=== PATIENT | male | born 1970 | race Caucasian/White ===

== ENCOUNTER 2018-04-02 09:58 | Inpatient (IN) | payer BC ==
[2018-04-01 15:00] LABS: BASOPHILS # (AUTO) 0.1 (0.0-0.1); BASOPHILS % 1.1 % (0.0-1.0); EOSINOPHILS # (AUTO) 0.2 (0.0-0.4); EOSINOPHILS % 2.7 % (0.0-6.0); HEMATOCRIT 38.2 % (38.2-49.6); HEMOGLOBIN 12.7 g/dL (14.0-18.0); LYMPHOCYTES # (AUTO) 2.2 (1.0-3.2); MEAN CORPUSCULAR HEMOGLOBIN 26.6 pg (28-32); MEAN CORPUSCULAR HGB CONC 33.2 g/dL (31-35); MEAN CORPUSCULAR VOLUME 80.1 fL (81-99); MONOCYTES # (AUTO) 0.6 (0.2-0.8); MONOCYTES % 7.7 % (4.4-11.3); NEUTROPHILS # (AUTO) 4.3 (2.1-6.9); NEUTROPHILS % 58.1 % (38.7-80.0); PLATELET COUNT 219 x10e3/uL (140-360); RED BLOOD COUNT 4.77 x10e6/uL (4.3-5.7); RED CELL DISTRIBUTION WIDTH 14.9 % (11.7-14.4)
[2018-04-01 15:17] LABS: BLOOD UREA NITROGEN 17 mg/dL (7-26); BUN/CREATININE RATIO 14 (6-25); CALCIUM 10.3 mg/dL (8.4-10.2); CARBON DIOXIDE 24 mmol/L (22-29); CHLORIDE 95 mmol/L (98-107); CREATININE, SERUM 1.22 mg/dL (0.72-1.25); EST GLOMERULAR FILTRATION RATE > 60 ML/MIN (60-); SODIUM 131 mmol/L (136-145)
[2018-04-01 15:21] LABS: GLUCOSE 474 mg/dL (74-118)
--- NOTE | 2018-04-01 15:30 | Diagnostic Imaging Report ---
PROCEDURE: Frontal and lateral views of the chest. COMPARISON: None. INDICATIONS: PREOPERATIVE CHEST XRAY FOR LEFT HEART CATH FINDINGS: Lines/tubes: None. Lungs: The lungs are well inflated and clear. There is no evidence of pneumonia or pulmonary edema. Pleura: There is no pleural effusion or pneumothorax. Heart and mediastinum: The heart and the mediastinum are normal. Bones: No acute bony abnormality. IMPRESSION: No acute cardiopulmonary disease. Dictated by: Art Molina M.D. on 04/01/2018 at 15:35 Electronically approved by: Art Molina M.D. on 04/01/2018 at 15:35
[~2018-04-02] VITALS: Ht 177.8 cm; Wt 129.3 kg
[2018-04-02] VITALS (10 sets, daily range): BP systolic 117–143; BP diastolic 68–86
[~2018-04-02 09:58] MED LIST: CRESTOR10 MG PEG; JANUMET 50-5001 EACH PEG; LEVOTHYROXINE50 MCG PO; LISINOPRIL10 MG PO; METOPROLOL SUCC25 MG PO; PANTOPRAZOLE SO40 MG PO
[2018-04-02] MEDS ORDERED: SODIUM CHLORIDE 0.9% 1000ML 1,000 ML ONE (10:49)
[2018-04-02] MEDS ORDERED: INSULIN REGULAR, HUMAN 100 UNIT/1 ML 3ML VIAL SQ ONE ×2 (11:30→12:30)
[2018-04-02] MEDS ORDERED: FENTANYL CITRATE/PF 100MCG/2 ML INJ ONE (12:41)
[2018-04-02] MEDS ORDERED: MIDAZOLAM HCL 2 MG/2 ML VIAL ONE ×2 (12:41→14:01)
[2018-04-02] MEDS ORDERED: IOPAMIDOL 370 MG/ML 200 ML INFUS..BTL INJ ONE ×2 (12:41→13:46)
[2018-04-02] MEDS ORDERED: LIDOCAINE HCL 2% LOCAL 20 ML VIAL ONE ×2 (12:41→13:38)
[2018-04-02] MEDS ORDERED: HEPARIN SOD/SOD CHLORIDE 2,000 ML ONE (12:41)
[2018-04-02] MEDS ORDERED: BIVALIRUDIN 250 MG/VIAL IV ONE (13:58)
[2018-04-02] MEDS ORDERED: SODIUM CHLORIDE 0.9% 50ML 50 ML ONE (13:58)
[2018-04-02] MEDS ORDERED: NITROGLYCERIN/D5W 200 MCG/ML 250 ML ONE (14:01)
[2018-04-02] MEDS ORDERED: CEFAZOLIN SOD 1 GM VIAL ONE (14:20)
[2018-04-02] MEDS ORDERED: CLOPIDOGREL BISULFATE 75 MG TAB ONE (14:27)
[2018-04-02] MEDS ORDERED: ASPIRIN 81 MG CHEW TAB ONE (14:28)
[2018-04-02] MEDS ORDERED: ATROPINE SULFATE 0.1 MG/ML 10ML SYR ONE (14:29)
[2018-04-02] MEDS ORDERED: SODIUM CHLORIDE 0.9% 1000ML 1,000 ML IV SCH (15:18)
[2018-04-02] MEDS ORDERED: NITROGLYCERIN 0.4 MG SUBL SL PRN (15:30)
[2018-04-02] MEDS ORDERED: HYDROCODONE/APAP 5MG-325MG TAB PO PRN (15:30)
[2018-04-02] MEDS ORDERED: ZOLPIDEM TARTRATE 5 MG TAB PO PRN (15:30)
[2018-04-02] MEDS ORDERED: ONDANSETRON HCL INJ 2 MG/ML VIAL IV PRN (15:30)
[2018-04-02] MEDS ORDERED: INSULIN REGULAR, HUMAN 100 UNIT/1 ML 3ML VIAL SQ PRN (15:45)
[2018-04-02] MEDS ORDERED: DEXTROSE 50% SYRINGE 50 ML IV PRN (15:45)
[2018-04-02] MEDS: METOPROLOL TARTRATE 25 MG TAB PO SCH (17:00)
[2018-04-02 17:09] LABS: BASOPHILS # (AUTO) 0.1 (0.0-0.1); BASOPHILS % 0.6 % (0.0-1.0); EOSINOPHILS # (AUTO) 0.1 (0.0-0.4); EOSINOPHILS % 1.5 % (0.0-6.0); HEMOGLOBIN 12.5 g/dL (14.0-18.0); LYMPHOCYTES # (AUTO) 1.4 (1.0-3.2); LYMPHOCYTES % 15.4 % (18.0-39.1); MEAN CORPUSCULAR HEMOGLOBIN 26.5 pg (28-32); MEAN CORPUSCULAR HGB CONC 32.9 g/dL (31-35); MEAN CORPUSCULAR VOLUME 80.5 fL (81-99); MONOCYTES # (AUTO) 0.5 (0.2-0.8); MONOCYTES % 5.2 % (4.4-11.3); NEUTROPHILS # (AUTO) 6.9 (2.1-6.9); NEUTROPHILS % 77.1 % (38.7-80.0); PLATELET COUNT 203 x10e3/uL (140-360); RED BLOOD COUNT 4.72 x10e6/uL (4.3-5.7); RED CELL DISTRIBUTION WIDTH 14.7 % (11.7-14.4)
[2018-04-02] MEDS: INSULIN REGULAR, HUMAN 100 UNIT/1 ML 3ML VIAL SQ SCH (17:15)
[2018-04-02 17:26] LABS: ANION GAP 15.9 mmol/L (8-16); BLOOD UREA NITROGEN 17 mg/dL (7-26); BUN/CREATININE RATIO 18 (6-25); CALCIUM 9.4 mg/dL (8.4-10.2); CARBON DIOXIDE 24 mmol/L (22-29); CHLORIDE 97 mmol/L (98-107); CREATININE, SERUM 0.94 mg/dL (0.72-1.25); EST GLOMERULAR FILTRATION RATE > 60 ML/MIN (60-); GLUCOSE 241 mg/dL (74-118); POTASSIUM 3.9 mmol/L (3.5-5.1); SODIUM 133 mmol/L (136-145)
[2018-04-02] MEDS ORDERED: ATORVASTATIN 20 MG TAB PO SCH (21:00)
[2018-04-02] MEDS ORDERED: ATORVASTATIN 20 MG TAB PO ONE (23:00)
[2018-04-03] MEDS: INSULIN REGULAR, HUMAN 100 UNIT/1 ML 3ML VIAL SQ SCH ×2 (00:30→05:42)
[2018-04-03 04:45] LABS: BASOPHILS # (AUTO) 0.1 (0.0-0.1); BASOPHILS % 0.7 % (0.0-1.0); EOSINOPHILS # (AUTO) 0.2 (0.0-0.4); EOSINOPHILS % 1.7 % (0.0-6.0); HEMATOCRIT 37.7 % (38.2-49.6); HEMOGLOBIN 12.4 g/dL (14.0-18.0); LYMPHOCYTES # (AUTO) 2.8 (1.0-3.2); LYMPHOCYTES % 28.6 % (18.0-39.1); MEAN CORPUSCULAR HEMOGLOBIN 26.4 pg (28-32); MEAN CORPUSCULAR HGB CONC 32.9 g/dL (31-35); MEAN CORPUSCULAR VOLUME 80.4 fL (81-99); MONOCYTES # (AUTO) 0.7 (0.2-0.8); MONOCYTES % 7.1 % (4.4-11.3); NEUTROPHILS # (AUTO) 5.9 (2.1-6.9); NEUTROPHILS % 61.7 % (38.7-80.0); PLATELET COUNT 218 x10e3/uL (140-360); RED BLOOD COUNT 4.69 x10e6/uL (4.3-5.7); RED CELL DISTRIBUTION WIDTH 15.1 % (11.7-14.4)
[2018-04-03 04:58] LABS: ANION GAP 15.4 mmol/L (8-16); BLOOD UREA NITROGEN 14 mg/dL (7-26); BUN/CREATININE RATIO 14 (6-25); CALCIUM 9.6 mg/dL (8.4-10.2); CARBON DIOXIDE 27 mmol/L (22-29); CHLORIDE 99 mmol/L (98-107); CREATININE, SERUM 1.02 mg/dL (0.72-1.25); EST GLOMERULAR FILTRATION RATE > 60 ML/MIN (60-); GLUCOSE 153 mg/dL (74-118); POTASSIUM 4.4 mmol/L (3.5-5.1); SODIUM 137 mmol/L (136-145)
[2018-04-03 05:00] VITALS: BP 136/87
[2018-04-03] MEDS ORDERED: LEVOTHYROXINE SODIUM 50 MCG TAB PO SCH (06:30)
[2018-04-03] MEDS ORDERED: PANTOPRAZOLE SOD 40 MG TABEC PO SCH ×3 (07:30→09:00)
[2018-04-03 08:00] VITALS: BP 146/71
[2018-04-03] MEDS: METOPROLOL TARTRATE 25 MG TAB PO SCH (08:50)
[2018-04-03] MEDS ORDERED: ASPIRIN 325 MG TAB PO SCH (09:00)
[2018-04-03] MEDS ORDERED: CLOPIDOGREL BISULFATE 75 MG TAB PO SCH (09:00)
[2018-04-03 09:07] VITALS: BP 146/71
[2018-04-03] MEDS ORDERED: AMLODIPINE BESYL5 MG PO (12:07)
[2018-04-03] MEDS ORDERED: NITROGLYCERIN0.4 MG SL (12:08)
[2018-04-03] MEDS ORDERED: CLOPIDOGREL75 MG PO (12:08)
--- NOTE | 2018-04-03 14:53 | Operative Report ---
DATE OF PROCEDURE: April 02, 2018 DIAGNOSES 1. Coronary artery disease with unstable angina pectoris. 2. Hypertensive cardiovascular disease. 3. Diabetes mellitus. 4. Hyperlipidemia. PROCEDURES 1. Cardiac catheterization including selective coronary angiography and left ventricular angiogram. 2. Angioplasty and stenting of the right coronary artery. 3. Closure of left femoral artery with Angio-Seal VIP. ANESTHESIA: Moderate sedation and local anesthetic to the left groin area. DESCRIPTION OF PROCEDURE: After the usual prepping and draping, the left inguinal area was infiltrated with local lidocaine. The left femoral artery was then punctured percutaneously. In a modified Seldinger technique, a 6-Palestinian arterial sheath was placed in the left femoral artery. Selective coronary angiography was performed by using modified Rosanna catheters. A 6-Palestinian angled pigtail catheter was utilized for recording of hemodynamics and left ventricular angiography in the 30-degree HORVATH projection. FINDINGS OF DIAGNOSTIC CARDIAC CATHETERIZATION: The left ventricular pressure was 136 mmHg. The aortic pressure was 132/78 with a mean of 98 mmHg. There was no gradient across the aortic valve. The left ventricular end-diastolic pressure was elevated at 16 mmHg. The left coronary artery showed some scattered calcifications in the proximal branches. The left main coronary artery showed some minor irregularities amounting to approximately 10% stenosis. The left anterior descending branch showed diffuse scattered proximal irregularities consistent with 20% to 30% stenotic areas. The ostial portion of the 1st diagonal branch showed about a 40% stenosis. There was an intermediate branch, which also showed proximal irregularities amounting to about 10% to 20% stenosis. The left circumflex artery and obtuse marginal branch did not show any stenotic areas. The right coronary artery showed diffuse arteriosclerotic plaques with a segmental 70% stenotic area in the mid portion. The right coronary artery was large and dominant. The left ventricular angiogram showed normal wall motion and there was a normal ejection fraction of 65%. There was no evidence of mitral regurgitation. After review of the patient's diagnostic study, intervention was performed on the right coronary artery. The patient was started on Angio-Max bolus and drip, and a 6-Palestinian 3DRC guiding catheter was utilized for cannulization of the ostium of the right coronary artery. A 0.014 Whisper guidewire was advanced across the lesion into the distal right coronary artery. Angioplasty and stenting were performed by using a 3.5-mm x 24-mm coronary stent, model Synergy by [employer]. The stent was inflated up to 15 atmospheres for 44 seconds and was deployed successfully without any residual stenosis. The procedure was then terminated by removing the stent carrier, guidewire, guiding catheter and performing angiogram of the left inguinal area in the left anterior oblique position. The left femoral artery was then closed by using the Angio-Seal VIP closure device. After closing the left femoral artery and achieving a good hemostasis, the patient developed vasovagal reaction. The patient received 1 mg of atropine intravenously and a bolus of normal saline. However, he remained hypotensive and was then started on a dopamine drip at 3 mcg/kg/min. This achieved a normal blood pressure, and the patient became asymptomatic. He was then transferred to the observation area in stable condition. There were no complications, and the procedure was otherwise well tolerated. He received 600 mg of Plavix and 160 mg of aspirin orally after the Angio-Max drip was discontinued. Throughout the procedure, the patient had no chest pain, and there were no EKG changes. The patient's blood sugar at the end of procedure was less than 200. The patient was advised to follow a weight-reduction, low-carbohydrate and low-cholesterol diet. He will be continued on a statin to control his hyperlipidemia. The patient was advised prior to admission to increase his lisinopril to twice daily. However, it was noted that there was elevation of the potassium and lowering of the patient's sodium. He will then be advised to resume the lisinopril only once daily, and will require a prescription for amlodipine 5 mg twice daily. Since the patient was also recently started on metoprolol and had some unexplained episodes of sweating, which probably be could be related to the metoprolol, he was advised to discontinue this medication. Otherwise, the patient will resume his home medication. He stopped smoking 1 month ago and was certainly encouraged not to resume his nicotine habit. The patient will be closely watched overnight and hopefully will be discharged on the 03 of April to be followed as an outpatient. Job#: [id number] DEONDRE
[2018-04-03] MEDS ORDERED: ATORVASTATIN 20 MG TAB PO SCH (21:00)
== END 2018-04-03 12:37 | disposition home or self-care (01) | DRG 247 ==
LOC: CATH LAB 09:58 → IMCU 18:06
PROVIDERS: ADMIT Internal Medicine Cardiovascular Disease; ATTEND Internal Medicine Cardiovascular Disease
PROC: 027034Z Dilation of Coronary Artery, One Artery with Drug-eluting Intraluminal Device, Percutaneous Approach (ICD-10-PCS; principal; 2018-04-02)
PROC: 4A023N7 Measurement of Cardiac Sampling and Pressure, Left Heart, Percutaneous Approach (ICD-10-PCS; 2018-04-02)
PROC: B2151ZZ Fluoroscopy of Left Heart using Low Osmolar Contrast (ICD-10-PCS; 2018-04-02)
PROC: B2111ZZ Fluoroscopy of Multiple Coronary Arteries using Low Osmolar Contrast (ICD-10-PCS; 2018-04-02)
DX: I25.110 Atherosclerotic heart disease of native coronary artery with unstable angina pectoris (principal); I97.88 Other intraoperative complications of the circulatory system, not elsewhere classified; E78.5 Hyperlipidemia, unspecified; E11.9 Type 2 diabetes mellitus without complications; E03.9 Hypothyroidism, unspecified; Z79.4 Long term (current) use of insulin
CPT/HCPCS: 36415; 71046; 80048; 82947; 82948; 85025; 92928; 93005; 93458; C1874; J0583; J0690; J2001; J2250; J7030; Q9967

== ENCOUNTER → 2018-12-29 | Outpatient (CLI) | payer BC ==
[~2018-12-29] MED LIST changes: +AMLODIPINE BESYL5 MG PO; +CLOPIDOGREL75 MG PO; +NITROGLYCERIN0.4 MG SL
--- NOTE | 2018-12-29 13:41 | Diagnostic Imaging Report ---
FLUOROSCOPIC SMALL BOWEL SERIES STORE TEAM MEMBER(S): Ludy Greenberg MD Indication: Anemia. Comparison: None. Radiation Dose: Total dose: 131.39 mGy Total fluoroscopy time: 0.4 minutes Procedure: Small bowel follow through exam was performed using oral barium. Preliminary image was obtained before administration of contrast and serial overhead images were obtained after administration of oral barium. Fluoroscopy was performed and spot images were obtained. DISCUSSION: SAFETY RELIEF VALVE TECHNICIAN: The bowel gas pattern is non-obstructive. No acute bony abnormality. Surgical clips in the right lower quadrant. STOMACH: Unremarkable mucosal pattern. SMALL BOWEL: Bulb and sweep are normal. Duodenal-jejunal junction is in the normal expected position. Small bowel loops are normal in caliber and distribution. There is no evidence of fistula, mucosal changes, stricture or dilation. The transit time was within normal limits. Spot image of the terminal ileum was unremarkable. COLON: Filling defects within the proximal colon likely reflect stool contents. The proximal colon is not well evaluated due to lack of significant contrast opacification. IMPRESSION: Unremarkable fluoroscopic small bowel series. Signed by: Dr. Ludy Greenberg MD on 12/29/2018 1:38 PM
== END ==
LOC: DX 06:53
PROVIDERS: ATTEND Internal Medicine Gastroenterology
DX: D64.9 Anemia, unspecified (principal)
CPT/HCPCS: 74250

== ENCOUNTER → 2019-01-22 | Day surgery (SDC) | payer BC ==
[2019-01-21 11:40] LABS: BASOPHILS # (AUTO) 0.1 (0.0-0.1); BASOPHILS % 1.2 % (0.0-1.0); EOSINOPHILS # (AUTO) 0.2 (0.0-0.4); EOSINOPHILS % 2.6 % (0.0-6.0); HEMATOCRIT 36.4 % (38.2-49.6); HEMOGLOBIN 10.3 g/dL (14.0-18.0); LYMPHOCYTES # (AUTO) 1.8 (1.0-3.2); MEAN CORPUSCULAR HEMOGLOBIN 19.2 pg (28-32); MEAN CORPUSCULAR HGB CONC 28.3 g/dL (31-35); MEAN CORPUSCULAR VOLUME 67.9 fL (81-99); MONOCYTES # (AUTO) 0.7 (0.2-0.8); MONOCYTES % 10.5 % (4.4-11.3); NEUTROPHILS # (AUTO) 3.7 (2.1-6.9); NEUTROPHILS % 57.4 % (38.7-80.0); PLATELET COUNT 325 x10e3/uL (140-360); RED BLOOD COUNT 5.36 x10e6/uL (4.3-5.7); RED CELL DISTRIBUTION WIDTH 18.8 % (11.7-14.4)
[~2019-01-22] MED LIST changes: -CRESTOR10 MG PEG; +CRESTOR10 MG PO; +HYDROCHLOROTHIA25 MG PO; -JANUMET 50-5001 EACH PEG; +JANUMET 50-5001 EACH PO; +KETAMINE HCL INJ 50 MG/ML 10 ML VIAL ONE; +LIDOCAINE HCL 2% LOCAL INJ 5 ML SDV VIAL INJ ONE; +MIDAZOLAM HCL 2 MG/2 ML VIAL ONE; +PROPOFOL IV EMULSION 10 MG/ML 50 ML VIAL ONE
--- OUTSIDE RECORDS SUMMARY | 2019-01-22 10:15 | XMS REPORT | Continuity of Care Document ---
Author [facility] Address Unknown Phone Unavailable Problems Problem Status Onset Date Classification Date Reported Comments Source Body mass index 40+ - severely obese 03/03/2018 Diagnosis 03/03/2018 [facility] Viral upper respiratory tract infection 03/03/2018 Diagnosis 03/03/2018 [facility] Cigarette smoker 03/03/2018 Diagnosis 03/03/2018 [facility] Type 2 diabetes mellitus without complication 03/03/2018 Diagnosis 03/03/2018 [facility] Essential hypertension 03/03/2018 Diagnosis 03/03/2018 [facility] Hypothyroidism 03/03/2018 Problem 03/03/2018 [facility] Type 2 Diabetes Mellitus without Complication 03/03/2018 Problem 03/03/2018 [facility] Hyperlipidemia 03/03/2018 Problem 03/03/2018 [facility] Essential Hypertension 03/03/2018 Problem 03/03/2018 [facility] Viral Upper Respiratory Tract Infection 03/03/2018 Problem 03/03/2018 [facility] Cigarette Smoker 03/03/2018 Problem 03/03/2018 [facility] Body Mass Index 40+ - Severely Obese 03/03/2018 Problem 03/03/2018 [facility] Medications Medication Details Route Status Patient Instructions Ordering Provider Order Date Source Accu-Chek Fastclix Lancet Drum Accu-Chek Fastclix Lancet Drum UTD BID Active [facility] Accu-Chek Guide strips Accu-Chek Guide strips UTD BID Active [facility] benzonatate 200 MG Oral Capsule benzonatate 200 mg capsule Take 1 capsule 3 times a day by oral route as needed. Active [facility] buspirone hydrochloride 10 MG Oral Tablet buspirone 10 mg tablet TK 1 T PO BID Active [facility] Chantix Chantix Active [facility] Fluticasone propionate 0.05 MG/ACTUAT Metered Dose Nasal [place] Harris fluticasone 50 mcg/actuation nasal spray,suspension [place] 2 sprays every day by intranasal route as needed. Active [facility] 24 HR Metformin hydrochloride 1000 MG / sitagliptin 50 MG Extended Release Oral Tablet [Janumet] Janumet XR 50 mg-1,000 mg tablet,extended release TK 1 T PO BID. PATIENT NEEDS TO BE SEEN FOR FURTHER REFILLS Active [facility] Levothyroxine Sodium 0.05 MG Oral Tablet levothyroxine 50 mcg tablet TK 1 T PO QD Active [facility] Lisinopril 20 MG Oral Tablet lisinopril 20 mg tablet TK 1 T PO D Active [facility] 24 HR metoprolol succinate 50 MG Extended Release Oral Tablet metoprolol succinate ER 50 mg tablet,extended release 24 hr TK 1 T PO QD Active [facility] pantoprazole 40 MG Delayed Release Oral Tablet pantoprazole 40 mg tablet,delayed release TK 1 T PO D Active [facility] Prednisone 20 MG Oral Tablet prednisone 20 mg tablet Take 1 tablet every day by oral route as directed for 4 days. Active [facility] Rosuvastatin calcium 20 MG Oral Tablet rosuvastatin 20 mg tablet TK 1 T PO QD Active [facility] Allergies, Adverse Reactions, Alerts Substance Category Reaction Severity Reaction type Status Date Reported Comments Source Immunizations Immunization Date Given Site Status Last Updated Comments Source Results Order Name Results Value Reference Range Date Interpretation Comments Source Vital Signs Vital Sign Value Date Comments Source Diastolic (mm Hg) 100 03/03/2018 [facility] Height 70 03/03/2018 [facility] Systolic (mm Hg) 130 03/03/2018 [facility] Weight 290 03/03/2018 [facility] Encounters Location Location Details Encounter Type Encounter Number Reason For Visit Attending Provider ADM Date DC Date Status Source [place] - [facility] - [id number] Espinosa, MANAGER DOMESTIC[facility] [address] [facility] [place] [address], Ph. [id number] Suzi Espinosa 03/03/2018 [facility] Procedures Procedure Code Date Perfomer Comments Source Appendectomy [facility]
--- OUTSIDE RECORDS SUMMARY | 2019-01-22 10:15 | XMS REPORT | Encounter Summary ---
Author Organization Unknown Address [address] [place] [id number] Phone [phone] Care Team Providers Care Scientific Systems Analyst Name Role Phone Mey Falcon MD 3 [phone] Reason for Visit Medical Complaint Instructions 1. Viral upper respiratory tract infection benzonatate 200 mg capsule fluticasone 50 mcg/actuation nasal spray,suspension prednisone 20 mg tablet 2. Essential hypertension high blood pressure: care instructions 3. Type 2 diabetes mellitus without complication type 2 diabetes: care instructions 4. Hyperlipidemia high cholesterol: care instructions 5. Cigarette smoker 6. Body mass index 40+ - severely obese body mass index: care instructions Discussion Note Pt is in NAD; Verbalizes understanding of all instructions with no questions at this time. Plan of Care Patient Instructions Take tylenol over the counter for pain/headache/fever as per pacakge insert. Take benzonatate for cough as directed. Take fluticasone as needed for congestion. Evans one spray in each nostril twice a day. Take a warm, steamy shower, blow your nose thereafter, and spray in each nostril. Tilt your head up for about 10 seconds and breath through your mouth. Do not sniff or snort the medication in or else the medication will go to your throat and not be absorbed appropriately. Take levocetirizine for allergy like symptoms like runny nose, sneezing and watery eyes. Take medications as prescribed and follow up with a PCP within 2-3 if symptoms worsen as discussed. Recommend monitor BP at home and document, bring BP log to PCP for review. Recommend follow a low sodium diet and exercise 30-45 mins/d 3-4 days a week. Reminders Provider Appointments None recorded. Lab None recorded. Referral None recorded. Procedures None recorded. Surgeries None recorded. Imaging None recorded. Medications Name Start Date Accu-Chek Fastclix Lancet Drum UTD BID Accu-Chek Guide strips UTD BID benzonatate 200 mg capsule Take 1 capsule 3 times a day by oral route as needed. buspirone 10 mg tablet TK 1 T PO BID Chantix fluticasone 50 mcg/actuation nasal spray,suspension Evans 2 sprays every day by intranasal route as needed. Janumet XR 50 mg-1,000 mg tablet,extended release TK 1 T PO BID. PATIENT NEEDS TO BE SEEN FOR FURTHER REFILLS levothyroxine 50 mcg tablet TK 1 T PO QD lisinopril 20 mg tablet TK 1 T PO D metoprolol succinate ER 50 mg tablet,extended release 24 hr TK 1 T PO QD pantoprazole 40 mg tablet,delayed release TK 1 T PO D prednisone 20 mg tablet Take 1 tablet every day by oral route as directed for 4 days. rosuvastatin 20 mg tablet TK 1 T PO QD Medications Administered None recorded. Vitals Height Weight BMI Blood Pressure 5 ft 10 in 290 lbs 41.6 kg/m2 (1) 130/100 mm[Hg] (2) 130/100 mm[Hg] Lab Results None recorded. Allergies Code Code System Name Reaction Severity Status Onset NKDA Problems Name Status Onset Date Source Hypothyroidism Active 03/03/2018 Type 2 Diabetes Mellitus without Complication Active 03/03/2018 Hyperlipidemia Active 03/03/2018 Essential Hypertension Active 03/03/2018 Viral Upper Respiratory Tract Infection Active 03/03/2018 Cigarette Smoker Active 03/03/2018 Body Mass Index 40+ - Severely Obese Active 03/03/2018 Procedures Date Name Performed by Appendectomy Information not available Vaccine List None recorded. Social History Smoking Status Current Some Day Smoker Past Encounters 03/03/2018 Viral Upper Respiratory Tract Infection; Essential Hypertension; Type 2 Diabetes Mellitus without Complication; Hyperlipidemia; Cigarette Smoker; Body Mass Index 40+ - Severely Obese Suzi Espinosa, [facility]: [address] [place] [address], Ph. History of Present Illness Uaxfcer-Zfipv-Wel Reported By: Patient HPI: Quality: symptoms worse during the day. Duration: 7 days. Context: no ill contacts, no tick/insect bites, no recent travel, no new medications. Associated Symptoms: no fever/chills, no headache, no muscle aches, no rash, no lethargy, cold symptoms, cough, nasal passage blockage (stuffiness), nasal discharge; sinus pressure and post nasal drip. Modifying Factors nothing gives relief Review of Systems Basic Reported By: Patient Constitutional: Constitutional: no fever Eyes: Eyes: no eye complaints Zqtm-Itba-Eafap-Throat: Ears: no ear complaints. Nose: nose/sinus problems. Mouth/Throat: no sore throat, no bleeding gums, no mouth complaints, no teeth problems Cardiovascular: Cardiovascular: no chest pain, no shortness of breath, no known heart murmur Respiratory: Respiratory: no wheezing, no shortness of breath, cough Gastrointestinal: Gastrointestinal: no abdominal pain, no vomiting / diarrhea Genitourinary: Genitourinary: no urinary complaints, no discharge Musculoskeletal: Musculoskeletal: no muscle aches, no muscle weakness, no arthralgias/joint pain, no back pain Skin: Skin: no abnormal / changing mole, no jaundice, no rashes Neurologic: Neurologic: no loss of consciousness, no weakness, no numbness, no seizures, no dizziness, no headaches Physical Exam Adult Basic, Adult Male Complete Reported By: Patient Constitutional: General Appearance: obese. Level of Distress: NAD. Ambulation: ambulating normally Psychiatric: Mental Status: active and alert. Orientation: to time, to place, to person Pms-Zwyg-Lamdm-Throat: Ears: no lesions on external ear, no outer ear tenderness, EACs clear, TMs clear. Hearing: no hearing loss. Nose: no lesions on external nose, nares patent, no septal deviation, nasal passages clear, no sinus tenderness, nasal discharge--rhinorrhea, post nasal drip; B/L NTs edematous and pink. Lips, Teeth, and Gums: no mouth or lip ulcers, no bleeding gums, normal dentition. Oropharynx: moist mucous membranes, no erythema, no exudates, tonsils not enlarged Neck: Lymph Nodes: no cervical LAD Lungs: Respiratory effort: no dyspnea, no tachypnea, no use of accessory muscles, no intercostal retractions. Auscultation: breath sounds normal Cardiovascular: Heart Auscultation: RRR, no murmurs Neurologic: Gait and Station: normal gait, normal station
[2019-01-22 12:30] VITALS: BP 126/71
--- NOTE | 2019-01-22 12:59 | Operative Report ---
DATE OF PROCEDURE: 01/22/2019 SURGEON: Sergio Bower MD PROCEDURE: Enteroscopy 160 cm from the incisors. INDICATIONS FOR ENTEROSCOPY: Iron deficiency anemia. MEDICATIONS: The patient was done under MAC, please see anesthesiologist's note. PROCEDURE IN DETAIL: With the patient in left lateral decubitus position, flexible fiberoptic Olympus pediatric colonoscope was inserted into the esophagus under direct visualization and advanced all the way to approximately 160 cm from the incisors. The scope was then withdrawn slowly and the mucosa overlying the proximal jejunum appeared to be within normal limits. ? AVM was noted in the 4th portion of the duodenum and that was fulgurated with a size 7-Spanish cold probe. The rest of the 4th portion, 3rd portion, 2nd portion, grossly appeared to be within normal limits. The scope was then withdrawn back into the stomach and retroflexed and the mucosa overlying the fundus appeared to be within normal limits. There was some patchy erythema noted in the antrum. Gastric folds were somewhat prominent, but those were biopsied in the recent past and the biopsies were grossly unremarkable. The scope was subsequently withdrawn. The patient tolerated the procedure well. IMPRESSION: 1. Mild distal esophagitis. 2. Small sliding hiatal hernia. 3. Gastritis. 4. Enteroscopy to proximal jejunum. ? AVM 4th portion of duodenum, fulgurated the size 7-Spanish gold probe. PLAN: Follow H and H. Continue Protonix 40 mg one p.o. q.a.m. a.c. The patient might benefit from a capsule endoscopy. Sergio Bower MD [place] /[id number] cc: Mey Falcon MD
[2019-01-22 13:20] LABS: % IRON SATURATION 3 % (15-50); IRON 17 ug/dL (65-175); TOTAL IRON BINDING CAPACITY 549 ug/dL (261-478); TRANSFERRIN 392 mg/dL (174-364)
[2019-01-26 14:14] LABS: ENDOMYSIAL ANTIBODIES, IGA Negative (Negative)
== END | disposition home or self-care (01) ==
LOC: OR 10:02
PROVIDERS: ATTEND Internal Medicine Gastroenterology
DX: K20.9 Esophagitis, unspecified (principal); K29.70 Gastritis, unspecified, without bleeding; K21.9 Gastro-esophageal reflux disease without esophagitis; K44.9 Diaphragmatic hernia without obstruction or gangrene; K31.89 Other diseases of stomach and duodenum; K63.5 Polyp of colon; K64.8 Other hemorrhoids; D50.9 Iron deficiency anemia, unspecified; E11.9 Type 2 diabetes mellitus without complications; I10 Essential (primary) hypertension; I25.10 Atherosclerotic heart disease of native coronary artery without angina pectoris; F17.210 Nicotine dependence, cigarettes, uncomplicated; Z79.02 Long term (current) use of antithrombotics/antiplatelets; Z68.41 Body mass index [BMI] 40.0-44.9, adult; Z95.5 Presence of coronary angioplasty implant and graft
CPT/HCPCS: 36415 ×2; 44369; 82784; 82948; 83516; 83540; 84466; 85025; 85045; 86256; J2001; J2250; J2704; 43239